=== PATIENT | female | born 1960 | race Caucasian/White ===

== ENCOUNTER 2016-07-21 05:27 | Emergency (ER) | payer OTHER ==
[2016-07-21 05:43] VITALS: TEMP 97.7; BMI 24.4
[2016-07-21] MEDS ORDERED: METOCLOPRAMIDE HCL INJECTION 10 MG/2 ML VIAL IVPB ONE (06:16)
[2016-07-21] MEDS ORDERED: morphine CARPU-JECT 4 MG/1 ML DISP.SYRIN IVPUSH ONE (06:16)
[2016-07-21] MEDS ORDERED: SODIUM CHLORIDE 1,000 ML IV STA (06:16)
[2016-07-21] MEDS ORDERED: PANTOPRAZOLE SODIUM 40 MG in SODIUM CHLORIDE 100 ML IVPB ONE (06:16)
--- NOTE | 2016-07-21 06:39 | PDOC ---
[id number] ABD PAIN Time Seen by Provider: 07/21/16 05:44 History Source: Patient Exam Limitations: No Limitations - History of Present Illness Travel History: No Initial Comments: 07/21/16 06:27 56yo Female patient presents to ED c/o abdominal bloating and pain after eating. Patient states she has a history of abd surgery with partial bowel removal due to recurrent diverticulitis and constipation per patient. Patient current symptoms began 1 week ago with associated nausea. Last BM: 2 days ago. GI Surgeon: "Milan Hagan" Timing/Duration: reports: getting worse Quality: reports: moderate Abdominal Pain Onset Location: reports: RUQ, epigastric Pain Radiation: reports: no radiation Activities at Onset: reports: no specific activity Treatment Prior to Arrive: worse with: analgesics, antacids, cold pack, heat, laxative, enema, other Aggravating Factors: improves with: Eating Alleviating Factors: worse with: None, Belching, Shallow Breathing, Defecation, Eating, Holding Breath, Passing Gas, Change in Position, Rest, Voiding, Vomiting Past History - Travel Traveled outside of the country in the last 30 days: No Close contact w/someone who was outside of country & ill: No - Past Medical History Allergies/Adverse Reactions: Allergies Allergy/AdvReac Type Severity Reaction Status Date / Time No Known Allergies Allergy Verified 07/21/16 05:39 Home Medications: Ambulatory Orders Ranitidine [Zantac -] 150 mg PO BID 04/20/16 Vitamin B Complex 1 each PO WEEKLY 04/20/16 Ondansetron HCl [Zofran] 4 mg PO TID PRN #12 tablet 07/21/16 Pantoprazole Sodium [Protonix] 40 mg PO DAILY #30 tablet. 07/21/16 Anemia: No Asthma: No Cancer: No Cardiac Disorders: No CVA: No COPD: (ADMITTED FOR PNEUMONIA-09/03/2011) CHF: No Dementia: No Diabetes: No Dialysis: No GI Disorders: Yes (ABDOMINAL PAIN,COLONIC POLYP) Disorders: No HTN: No Hypercholesterolemia: No HIV: No Kidney Stones: Yes Liver Disease: No Seizures: No Thyroid Disease: No - Surgical History Abdominal Surgery: Yes (SMALL BOWEL RESECTION) Appendectomy: No Cardiac Surgery: No Cholecystectomy: No Lung Surgery: No Neurologic Surgery: No Orthopedic Surgery: No - Immunization History Td Vaccination: Yes TDAP Vaccination: Yes Immunization Up to Date: Yes - Psycho/Social/Smoking Cessation Hx Anxiety: No Suicidal Ideation: No Smoking Status: Yes Smoking History: Current every day smoker Years of Tobacco Use: 35 Have you smoked in the past 12 months: Yes Number of Cigarettes Smoked Daily: 4 If you are a former smoker, when did you quit?: 08/24/2011 Cigars Per Day: 5 Information on smoking cessation initiated: Yes 'Breaking Loose' booklet given: 07/21/16 Hx Alcohol Use: Yes (OCCASIONALLY) Drug/Substance Use Hx: No Substance Use Type: None Hx Substance Use Treatment: No Abd/GI Specific PMHX - Complaint Specific PMHX Colitis: No Diverticulitis: No Gall Bladder Disease: No GERD: No Hepatitis: No Irritable Bowel Synd (IBS): No Pancreatitis: No GI Ulcer Disease: No Review of Systems - Review of Systems Able to Perform ROS?: Yes Is the patient limited Occitan proficient: No Constitutional: No: Chills, Fever, Malaise Respiratory: No: Cough, Shortness of Breath, Stridor, Wheezing Cardiac (ROS): No: Chest Pain, Lightheadedness, Palpitations, Syncope ABD/GI: Yes: Constipated, Nausea, Other (Abdominal Pain). No: Diarrhea, Poor Appetite, Poor Fluid Intake, Rectal Bleeding, Vomiting : No: Dysuria, Flank Pain, Hematuria Musculoskeletal: No: Back Pain Integumentary: No: Bruising, Erythema, Rash Neurological: No: Headache, Numbness, Paresthesia, Seizure, Tremors, Weakness, Ataxia, Dizziness All Other Systems: Reviewed and Negative *Physical Exam - Vital Signs Last Vital Signs Temp Pulse Resp BP Pulse Ox 97.7 F 60 18 140/86 98 07/21/16 05:40 07/21/16 05:40 07/21/16 05:40 07/21/16 05:40 07/21/16 05:40 - Physical Exam General Appearance: Yes: Nourished, Appropriately Dressed, Apparent Distress, Moderate Distress. No: Mild Distress, Severe Distress Respiratory/Chest: positive: Lungs Clear, Normal Breath Sounds. negative: Respiratory Distress, Accessory Muscle Use, Labored Respiration, Rapid RR, Stridor, Wheezing Cardiovascular: positive: Regular Rhythm, Regular Rate. negative: Edema, JVD, Murmur Gastrointestinal/Abdominal: positive: Tender (Epigastric and RUQ tendernss), Soft, Increased Bowel Sounds, Distended, Guarding, Rebound, Tenderness Musculoskeletal: positive: Normal Inspection. negative: CVA Tenderness Extremity: positive: Normal Capillary Refill, Normal Inspection, Normal Range of Motion Integumentary: positive: Normal Color, Dry, Warm Neurologic: positive: hard candy batch mixer II-XII NML intact, Fully Oriented, Alert, Normal Mood/ Affect, Normal Response, Motor Strength 09/25 ED Treatment Course - LABORATORY CBC & Chemistry Diagram: 07/21/16 07:15 07/21/16 07:15 - RADIOLOGY Radiology Studies Ordered: Category Date Time Status ABDOMEN & PELVIS CT WITH CONTR [CT] Stat CT Scan 07/21/16 06:16 Ordered *DC/Admit/Observation/Transfer Diagnosis at time of Disposition: Epigastric pain - Discharge Dispostion Disposition: HOME Condition at time of disposition: Improved Admit: No - Prescriptions Prescriptions: Pantoprazole Sodium [Protonix] 40 mg PO DAILY #30 tablet. Ondansetron HCl [Zofran] 4 mg PO TID PRN #12 tablet PRN Reason: Nausea And/Or Vomiting - Referrals Referrals: Steven Gaines DO [Staff Physician] - Madhuri Pike [Primary Care Provider] - - Patient Instructions Printed Discharge Instructions: DI for Epigastric Pain Additional Instructions: Take Zofran and Protonix as prescribed and follow-up with referral computerized table cutter. Please eat soft bland food for the next 48 hours and advance as tolerated. Return to ED if symptoms worsen.
[2016-07-21] MEDS ORDERED: PANTOPRAZOLE SODIUM 40 MG VIAL ONE (06:43)
[2016-07-21] MEDS ORDERED: morphine CARPU-JECT 4 MG/1 ML DISP.SYRIN ONE (06:43)
[2016-07-21] MEDS ORDERED: METOCLOPRAMIDE HCL INJECTION 10 MG/2 ML VIAL ONE (06:44)
[2016-07-21 07:37] LABS: BASOPHIL 0.5 % (0-2.0); EOSINOPHIL 1.4 % (0-4.5); MCH 30.2 pg (25.7-33.7); MCHC 35.2 g/dl (32.0-36.0); MEAN CELL VOLUME 85.9 fl (80-96); MEAN PLT VOLUME 7.5 fl (7.5-11.1); PLATELET COUNT 184 K/MM3 (134-434); RDW 12.4 % (11.6-15.6); WHITE BLOOD COUNT 8.3 K/mm3 (4.0-10.0)
[2016-07-21 07:42] LABS: URINE APPEARANCE CLEAR; URINE BILIRUBIN NEGATIVE (NEGATIVE); URINE COLOR LTYELLOW; URINE GLUCOSE (UA) NEGATIVE (NEGATIVE); URINE KETONE NEGATIVE (NEGATIVE); URINE LEUK ESTERASE NEGATIVE (NEGATIVE); URINE NITRITE NEGATIVE (NEGATIVE); URINE PROTEIN NEGATIVE (NEGATIVE); URINE UROBILINOGEN NEGATIVE E.U./dl (0.2-1.0)
[2016-07-21 08:04] LABS: ALBUMIN 3.8 g/dl (3.4-5.0); BILIRUBIN,DIRECT 0.1 mg/dL (0.0-0.2); BILIRUBIN,TOTAL 0.5 mg/dL (0.2-1.0); CALCIUM 9.4 mg/dL (8.5-10.1); CREATININE 0.8 mg/dL (0.55-1.02); TOT PROT 7.2 g/dl (6.4-8.2)
[2016-07-21 08:07] LABS: URINE BLOOD 1+ (NEGATIVE)
--- NOTE | 2016-07-21 08:13 | PDOC ---
*Physical Exam - Vital Signs Last Vital Signs Temp Pulse Resp BP Pulse Ox 97.7 F 72 18 126/74 99 07/21/16 05:40 07/21/16 07:30 07/21/16 07:30 07/21/16 07:30 07/21/16 07:30 - Physical Exam General Appearance: Yes: Nourished, Appropriately Dressed. No: Apparent Distress HEENT: positive: EOMI, VIN. negative: Pale Conjunctivae Neck: positive: Supple Respiratory/Chest: positive: Lungs Clear, Normal Breath Sounds. negative: Respiratory Distress, Accessory Muscle Use Cardiovascular: positive: Regular Rhythm, Regular Rate. negative: Murmur Gastrointestinal/Abdominal: positive: Tender (epigastric) ED Treatment Course - LABORATORY CBC & Chemistry Diagram: 07/21/16 07:15 07/21/16 07:15 - ADDITIONAL ORDERS Additional order review: Laboratory Results 07/21/16 07:36 Urine HCG, Qual Negative - Medications Given in the ED: ED Medications Discontinued Medications Generic Name Dose Route Start Last Admin Trade Name Freq PRN Reason Stop Dose Admin Pantoprazole Sodium 40 mg/ 100 mls @ 200 mls/hr 07/21/16 06:16 07/21/16 07:23 Sodium Chloride IVPB 07/21/16 06:45 200 mls/hr ONCE ONE Administration Sodium Chloride 1,000 mls @ 1,000 mls/hr 07/21/16 06:16 07/21/16 07:23 Normal Saline - IV 07/21/16 07:15 1,000 mls/hr ASDIR STA Administration Metoclopramide HCl 10 mg 07/21/16 06:16 07/21/16 07:23 Reglan Injection - IVPB 07/21/16 06:17 10 mg ONCE ONE Administration Morphine Sulfate 4 mg 07/21/16 06:16 07/21/16 07:23 Morphine Injection - IVPUSH 07/21/16 06:17 4 mg ONCE ONE Administration Medical Decision Making - Medical Decision Making 07/21/16 08:13 Patient received in sign out from MISSY Pastor. Patient awaiting CT secondary to abdominal pain. Patient had CBC and is otherwise comfortable presently Selected Entries 07/21/16 07:30 Pulse Rate [ 72 Apical] Respiratory 18 Rate Blood Pressure 126/74 [Left Arm] O2 Sat by Pulse 99 Oximetry (%) Laboratory Tests 02/07/21/16 07/21/16 07:15 07:19 07:36 WBC 8.3 Hgb 14.8 D Hct 42.1 D Plt Count 184 Neutrophils % 78.0 Urine Blood 1+ H Urine HCG, Qual Negative Chemistry amylase and lipase pending 07/21/16 11:55 Laboratory Tests 07/21/16 07/21/16 07/21/16 07:15 07:19 07:36 Sodium 142 Potassium 4.0 Chloride 106 Carbon Dioxide 26 Anion Gap 10 BUN 20 H D Creatinine 0.8 D Random Glucose 120 H D Calcium 9.4 AST 19 D ALT 36 D Lipase 235 Urine Ketones Negative Urine Blood 1+ H Urine Nitrite Negative Ur Leukocyte Esterase Negative Urine HCG, Qual Negative CT shows no thickening of the duodenum or proximal small bowel loops. Questionable mild fatty liver. Diverticulosis without evidence of diverticulitis. Patient states feeling better and will discharge home with recommendations to take Zofran and Protonix. Patient also recommended to follow- up with PCP *DC/Admit/Observation/Transfer Diagnosis at time of Disposition: Epigastric pain - Discharge Dispostion Disposition: HOME Condition at time of disposition: Improved - Prescriptions Prescriptions: Pantoprazole Sodium [Protonix] 40 mg PO DAILY #30 tablet. Ondansetron HCl [Zofran] 4 mg PO TID PRN #12 tablet PRN Reason: Nausea And/Or Vomiting - Referrals Referrals: Madhuri Pike [Primary Care Provider] - Steven Gaines DO [Staff Physician] - - Patient Instructions Printed Discharge Instructions: DI for Epigastric Pain Additional Instructions: Take Zofran and Protonix as prescribed and follow-up with referral pickler helper. Please eat soft bland food for the next 48 hours and advance as tolerated. Return to ED if symptoms worsen.
[2016-07-21 12:14] VITALS: BP 119/65; PULSE 75
== END 2016-07-21 12:14 | disposition home or self-care (01) ==
LOC: JER 05:27
PROC: 3E033GC Introduction of Other Therapeutic Substance into Peripheral Vein, Percutaneous Approach (ICD-10-PCS; principal; 2016-07-21)
PROC: 3E033NZ Introduction of Analgesics, Hypnotics, Sedatives into Peripheral Vein, Percutaneous Approach (ICD-10-PCS; 2016-07-21)
PROC: 3E033GC Introduction of Other Therapeutic Substance into Peripheral Vein, Percutaneous Approach (ICD-10-PCS; 2016-07-21)
DX: R10.13 Epigastric pain (principal)
CPT/HCPCS: 36415; 74177-TC; 80048; 80076; 81003; 81015; 82150; 83690; 84703; 85025; 96365; 96375; 99284-25; Q9967

== ENCOUNTER 2017-10-06 05:01 | Day surgery (SDC) | payer OTHER ==
--- NOTE | 2017-10-05 18:51 | PREOP ---
DATE OF ADMISSION: 10/06/2017 DATE OF SURGERY: 10/06/2017 ADMISSION DIAGNOSIS: Deviated nasal septum, inferior turbinate hypertrophy, chronic sphenoid sinusitis. HISTORY OF PRESENT ILLNESS: This 57-year-old female has had longstanding nasal obstruction. She has had complete bilateral obstruction, which occasionally fluctuates. There is additionally snoring. She has not had any previous nasal surgery. She also complains of headaches and sinus pain. Her exam demonstrates deviation of the septum and inferior turbinate hypertrophy. CT scan also demonstrates chronic bilateral sphenoid sinusitis. She has had neurology evaluation for suspected migraines. Her sense of smell has been somewhat reduced. She has also had allergy evaluation and has had maximum improvement with medical management and allergy management. She is now admitted for septoplasty, submucous resection of inferior turbinates, and sphenoid sinus surgery. PAST MEDICAL HISTORY: The patient does have a history of depression, diverticulitis, gastroesophageal reflux disease. No allergies to medications known. Present medications include azelastine, escitalopram oxalate, fluticasone nasal spray, gabapentin, loratadine, and meloxicam. She has been a smoker. Past surgical history includes stomach surgery for diverticula in the small intestine. She also had removal of a right breast cyst, and section. She underwent general anesthesia without reported problems. Bleeding history is negative. Family history is negative for bleeding or anesthesia problems. EXAMINATION: The patient is a well-developed female in no acute distress. Head is normal. Eyes are clear. Ears are unremarkable. The nose has significant deviation of the septum, inferior turbinate hypertrophy is present, chronic sphenoid sinusitis is present. DATA: CT scan of the paranasal sinuses performed at [facility] on August 21, 2017, demonstrates right and left chronic sphenoid sinusitis, and the remaining sinuses are unremarkable. The nasal septum is intact but significantly deviated. There is also significant inferior turbinate hypertrophy. IMPRESSION: Deviation of the nasal septum, inferior turbinate hypertrophy, and chronic sphenoid sinusitis. PLAN: Nasal septoplasty, submucous resection of inferior turbinates, and sphenoid sinus surgery, image guidance. INFORMED CONSENT: The patient understands the indications, alternatives, nature, risks and benefits of the proposed surgery, potential complications including but not limited to anesthesia, bleeding, infection, recurrence, numbness, hole in the septum, reduced sense of smell, eye injury or brain injury, were discussed in detail. She understands and accepts these risks and wished to proceed with surgery. Questions are answered fully. WISAM KIDD M.D. PAULO/[id number]
[2017-10-06 07:38] VITALS: BMI 24.3
[2017-10-06] MEDS ORDERED: LIDOCAINE 1%/EPI 1:100000 (20 ML MULTI DOSE VIAL) ONE (07:46)
--- NOTE | 2017-10-06 08:46 | HP ---
History & Physical Update - History History: No Change - Physical Physical: No Change - Assessment Assessment: No Change - Plan Plan: No Change
--- NOTE | 2017-10-06 08:48 | OP ---
Operative Note - Note: Operative Date: 10/06/17 ([id number]) Pre-Operative Diagnosis: nasal septal deviation, inferior turbinate hypertrophy with obstruction, chronic sphenoid sinusitis Operation: left sphenoid balloon sinuplasty, right endoscopic sphenoidotomy, nasal septoplasty, partial resection right middle turbinate,bilateral inferior turbinate therapeutic outfracture and mural cauterization Findings: polypoid obstruction right sphenoethmoid recess, obstructed left sphenoid ostium deviated septum to left, bony and cartilagenous right middle turbinate hypertrophy with polypoid degeneration bilateral inferior turbinate hypertrophy with obstruction, primarily soft tissue Implants: none Surgeon: Chavo Dorantes Anesthesiologist/MANAGER PLAN: Sonia Ceballos Anesthesia: General Specimens Removed: right sphenoid, right middle turbinate, nasal septum Estimated Blood Loss (mls): 5 Blood Volume Replaced (mls): 0 Operative Report Dictated: Yes
[2017-10-06] MEDS ORDERED: fentaNYL CITRATE 250 MCG/5 ML VIAL ONE (08:56)
[2017-10-06] MEDS ORDERED: MIDAZOLAM HCL 2 MG/2 ML SINGLE DOSE VIAL ONE (08:56)
[2017-10-06] MEDS ORDERED: PROPOFOL 20 ML ONE ×3 (08:56)
[2017-10-06] MEDS ORDERED: ALBUTEROL SO4 18 GM HFA INHALER IH ONE ×3 (09:15→11:03)
[2017-10-06] MEDS ORDERED: COCAINE HCL 4% TOPICAL SOLUTION 4 ML BOTTLE TP ONE ×2 (09:24→09:43)
[2017-10-06] MEDS ORDERED: ceFAZolin SODIUM 1 GM VIAL ONE (09:25)
[2017-10-06] MEDS ORDERED: ceFAZolin SODIUM 1 GM VIAL IVPB ONE (09:25)
[2017-10-06] MEDS ORDERED: ePHEDrine SULFATE 50 MG/1 ML AMPULE ONE (09:32)
[2017-10-06] MEDS ORDERED: DEXAMETHASONE SOD PHOSPHATE 4 MG/1 ML VIAL ONE (09:37)
[2017-10-06] MEDS ORDERED: LIDOCAINE 1%/EPI 1:100000 (50 ML MULTI DOSE VIAL) INF ONE ×2 (09:41)
[2017-10-06] MEDS ORDERED: BACITRACIN 15 GM TUBE TOPICAL OINTMENT ONE (09:59)
[2017-10-06] MEDS ORDERED: LACTATED RINGERS SOLUTION 1,000 ML IV SCH ×2 (11:00→12:30)
[2017-10-06] MEDS ORDERED: oxyCODONE HCL 5 MG TABLET PO PRN ×2 (11:00→12:23)
[2017-10-06] MEDS ORDERED: EPINEPHrine 1:10,000 (P-F SYR) 1 MG/10 ML DISP.SYRIN ONE (11:05)
[2017-10-06] MEDS ORDERED: LIDOCAINE HCL 2% 100 MG/5 ML DISP.SYRIN ONE (11:05)
--- NOTE | 2017-10-06 12:14 | OP ---
DATE OF OPERATION: 10/06/2017 PREOPERATIVE DIAGNOSIS: Nasal septal deviation, inferior turbinate hypertrophy, chronic sphenoid sinusitis. POSTOPERATIVE DIAGNOSIS: Nasal septal deviation, inferior turbinate hypertrophy, chronic sphenoid sinusitis with obstructive middle turbinate hypertrophy. PROCEDURE: Right endoscopic sphenoidotomy, left endoscopic balloon dilation of sphenoid sinus, nasal septoplasty, partial resection of right middle turbinate endoscopic, bilateral inferior turbinate therapeutic outfracture, and mural cauterization. SURGEON: Chavo Dorantes MD ANESTHESIOLOGIST: Dr. Sonia Ceballos ANESTHESIA: General via endotracheal tube. INDICATIONS: This 57-year-old female has had a longstanding nasal obstruction, which have has failed to improve with appropriate medical and allergic management. She has nasal septal deviation of the left as well as inferior turbinate hypertrophy. CT scan of the sinuses shows clear frontal ethmoid and maxillary sinuses; however, there is bilateral chronic sphenoid sinusitis. In addition, scan shows very hypertrophic middle turbinate. She is now participatory for treatment. FINDINGS: Nasal septal deviation to the left bony and cartilaginous. Right middle turbinate hypertrophy with polypoid degeneration and obstruction. Bilateral inferior turbinate hypertrophy with obstruction primary soft tissue. Polypoid obstruction of the right sphenoid ethmoid sinus and obstruction of the left sphenoid ostium. DESCRIPTION OF PROCEDURE: The patient was brought to the operating room and placed on the operating table in supine position. General anesthesia with endotracheal tube was induced to a satisfactory level. She was prepped and draped in the usual fashion for surgery. Lidocaine 1% with epinephrine 1:100,000 was infiltrated in the nasal septum. Cocaine 4% was placed topically in the nasal cavities on pledgets. The patient's CAT scan data was downloaded onto the [employer] Navigation System. The patient was properly registered. Image guidance was used intermittently throughout the case in order to identify anatomic location and guide surgical dissection. The pledgets were removed. Nasal endoscopy was performed with a 0-degree telescope. Deviation to the left side was seen. Inferior turbinate hypertrophy was present. The nasopharynx was clear. Significant middle turbinate hypertrophy was seen. The sphenoid ethmoid recesses were identified. It was narrowed on the left side, and on the right side there was significant polypoid tissue. Additional cocaine 4% was placed within the sphenoid ethmoid recesses. On the left side, the Entellus balloon dilation system was employed. The guide light was utilized, and the catheter light guide was advanced through the sphenoid ostium. The balloon was then advanced and then inflated for 10 seconds. The assembly was removed. Reinspection showed excellent dilation of the left sphenoid ostium. On the right side, significant polypoid tissue was identified at the sphenoid ethmoid recess. This was carefully removed with straight cup forceps. Sphenoid ostium was identified and was thereby opened. Attention was then turned toward the right middle turbinate. This partially obstructed the middle meatus. This was injected with lidocaine 1% with epinephrine 1:100,000. After adequate time for vasoconstriction, curved endoscopic scissors were then used to remove an anteroinferior portion of the middle turbinate where the polypoid degeneration was greatest. This was then sent to Pathology for routine studies. The remnant was cauterized with excellent hemostasis. This then did reveal the uncinate process and the ethmoid infundibulum, which were unremarkable. Attention was then turned toward the nasal septum. A right nasal septal incision was created with a 15 blade, and a right mucoperichondrial flap was elevated. The bony cartilaginous junction was identified, , and bilateral mucoperiosteal flaps were elevated. Obstructing bony septum along the perpendicular plate of the ethmoid was removed with the Garrett-Renato rongeur. An obstructing piece of cartilage inferiorly was excised with the Maiden cartilage knife. Bony deviation inferiorly was also removed with the rongeurs. After these maneuvers, the initial obstruction to the left had resolved. Cartilage and some bony fragment were placed in the middle layer as free graft. The incision was closed with interrupted 4-0 chromic sutures, and a todiaga-vfa-zyatckm quilting suture was also placed with 4-0 chromic. Finally, the inferior turbinates were examined. They were hypertrophic, but this was primarily soft tissue based upon CT scan and direct palpation. Therefore, the inferior turbinates were therapeutically outfractured with a Maiden elevator and long nasal specula. Once in a most recent lateralized position, mural cauterization was performed with a suction cautery in an island fashion. After these maneuvers, significant improvement in both nasal airways was obtained. Hemostasis was excellent. Nasopore dressing was then placed on the right side against the middle turbinate remnant. Folded Telfa gauze was placed in the inferior nasal cavities coated with bacitracin. The patient tolerated the procedure well. She was then awakened from general anesthesia and transferred to the PACU in stable condition. Estimated blood loss was 5 mL. She received crystalloid during the procedure. Specimens include right sphenoid, right middle turbinate, and nasal septal tissue, which were all sent to Pathology for routine studies. There were no complications. CHAVO DORANTES M.D. PAULO/[id number]
[2017-10-06] MEDS ORDERED: ALBUTEROL SO4 0.083% IH SOL 2.5 MG/3 ML VIAL.NEB. NEB ONE (12:23)
[2017-10-06] MEDS ORDERED: ONDANSETRON 4 MG/2 ML VIAL IVPUSH PRN (12:23)
[2017-10-06] MEDS ORDERED: ACETAMINOPHEN INJECTION 100 ML IVPB ONE (12:34)
[2017-10-06 13:41] VITALS: PULSE 67
[2017-10-06 16:39] VITALS: BP 129/78; TEMP 97.5
--- NOTE | 2017-10-08 17:53 | PATH ---
Surgical Pathology Report Patient Name: JOSE CRUZ WARREN [facility]. Rec. #: [id number] /Age/Gender: 1960 (Age: 57) / F Account: [id number] Location: [facility] SURGICAL Taken: 10/06/2017 Received: 10/06/2017 Reported: 10/08/2017 Physicians: Chavo Dorantes M.D. Specimen(s) Received A: SPHENOID SINUS B: MIDDLE TURBINATE TISSUE C: NASAL SEPTUM TISSUE Clinical History Deviated nasal septum, inferior turbinate hypertrophy with obstruction, atrophic sphenoid sinusitis Final Diagnosis A. SPHENOID SINUS, RIGHT, SPHENOID SINUS SURGERY: RESPIRATORY MUCOSA WITH CHRONIC SINUSITIS. B. MIDDLE TURBINATE, RIGHT, TURBINECTOMY: RESPIRATORY MUCOSA WITH CHRONIC SINUSITIS AND BONE. C. NASAL SEPTAL TISSUE, SEPTOPLASTY: CARTILAGE AND BONE WITHOUT SIGNIFICANT PATHOLOGIC FINDINGS. Electronically Signed Manjula Cagle M.D. Gross Description A. Received in formalin labeled "right sphenoid sinus," is a 0.5 cm greatest dimension jean soft tissue fragment. The specimen is submitted in toto in one cassette. B. Received in formalin labeled "right middle turbinate," is a 1.8 x 1.4 x 0.6 cm portion of bone with attached soft tissue. The specimen is bisected and entirely submitted in one cassette, following decalcification. C. Received in formalin labeled "nasal septal tissue," is a 2.0 x 1.0 x 0.2 cm aggregate of jean fragments of bone and cartilage. The specimen is entirely submitted in one cassette, following decalcification. 10/07/2017 [facility]2017
== END 2017-10-06 16:30 | disposition home or self-care (01) ==
LOC: JASU-SURG 05:01
PROVIDERS: ATTEND Otolaryngology
PROC: 09SL8ZZ Reposition Nasal Turbinate, Via Natural or Artificial Opening Endoscopic (ICD-10-PCS; 2017-10-06)
PROC: 8E09XBZ Computer Assisted Procedure of Head and Neck Region (ICD-10-PCS; principal; 2017-10-06 09:00)
PROC: 09BM8ZZ Excision of Nasal Septum, Via Natural or Artificial Opening Endoscopic (ICD-10-PCS; 2017-10-06 09:00)
DX: J34.2 Deviated nasal septum (principal); J34.3 Hypertrophy of nasal turbinates; J32.3 Chronic sphenoidal sinusitis
CPT/HCPCS: 94760; J0131

== ENCOUNTER 2021-02-19 09:01 | Emergency (ER) | payer OTHER ==
[2021-02-19 09:22] VITALS: BP 99/67; PULSE 91; TEMP 98.4; BMI 24.1
[2021-02-19] MEDS ORDERED: ALBUTEROL SO4 2.5/IPRATROPIUM 0.5 INH SOL 3 ML VIAL.NEB. NEB ONE ×2 (09:47→11:45)
[2021-02-19] MEDS ORDERED: ACETAMINOPHEN 500 MG TABLET (FP) PO ONE (09:47)
[2021-02-19] MEDS ORDERED: ACETAMINOPHEN 500 MG TABLET (FP) ONE (10:44)
[2021-02-19] MEDS ORDERED: ALBUTEROL SO4 0.083% IH SOL 2.5 MG/3 ML VIAL.NEB. NEB ONE (10:44)
== END 2021-02-19 15:11 | disposition home or self-care (01) ==
LOC: JER 09:01
PROC: 3E0F7GC Introduction of Other Therapeutic Substance into Respiratory Tract, Via Natural or Artificial Opening (ICD-10-PCS; principal; 2021-02-19)
PROC: 3E0F7GC Introduction of Other Therapeutic Substance into Respiratory Tract, Via Natural or Artificial Opening (ICD-10-PCS; 2021-02-19)
DX: J45.21 Mild intermittent asthma with (acute) exacerbation (principal); Z11.52 Encounter for screening for COVID-19
CPT/HCPCS: 71046-TC-FY; 94640; 99284-25; C9803; U0003; U0005

== ENCOUNTER 2022-03-11 09:53 | Day surgery (SDC) | payer OTHER ==
[2022-03-09 16:11] VITALS: BMI 26.2
[2022-03-11] MEDS ORDERED: LIDOCAINE HCL 2% 100 MG/5 ML DISP.SYRIN ONE (12:14)
[2022-03-11] MEDS ORDERED: MIDAZOLAM HCL 2 MG/2 ML SINGLE DOSE VIAL ONE (12:15)
[2022-03-11] MEDS ORDERED: PROPOFOL 60 ML ONE (12:15)
[2022-03-11] MEDS ORDERED: KETOROLAC TROMETHAMINE 30 MG/1 ML VIAL ONE (14:37)
[2022-03-11] MEDS ORDERED: DEXAMETHASONE SOD PHOSPHATE 4 MG/1 ML VIAL ONE (14:37)
[2022-03-11] MEDS ORDERED: ONDANSETRON 4 MG/2 ML VIAL ONE (14:37)
[2022-03-11] MEDS ORDERED: ceFAZolin SODIUM 1 GM VIAL ONE (14:40)
[2022-03-11] MEDS ORDERED: ONDANSETRON 4 MG/2 ML VIAL IVPUSH PRN (15:39)
[2022-03-11] MEDS ORDERED: PROMETHAZINE HCL 25 MG/1 ML VIAL IVPUSH PRN (15:39)
[2022-03-11] MEDS ORDERED: oxyCODONE HCL 5 MG TABLET PO PRN ×2 (15:39)
[2022-03-11] MEDS ORDERED: LACTATED RINGERS SOLUTION 1,000 ML IV SCH (15:45)
[2022-03-11 16:01] VITALS: TEMP 98
[2022-03-11 16:39] VITALS: RESP 16
[2022-03-11 16:50] VITALS: PULSE 56
[2022-03-11 17:20] VITALS: BP 118/70
== END 2022-03-11 17:05 | disposition home or self-care (01) ==
LOC: FASU 09:53
PROVIDERS: ATTEND Orthopaedic Surgery Hand Surgery
PROC: 0RGX07Z Fusion of Left Finger Phalangeal Joint with Autologous Tissue Substitute, Open Approach (ICD-10-PCS; principal; 2022-03-11 14:46)
DX: M19.042 Primary osteoarthritis, left hand (principal)
CPT/HCPCS: 73130-TC-LT-FY; 94760; C1713

== ENCOUNTER 2022-06-09 14:54 | Inpatient (IN) | payer OTHER ==
[2022-06-09 15:18] VITALS: BMI 26.0
[2022-06-09] MEDS ORDERED: ACETAMINOPHEN 500 MG TABLET (FP) PO ONE (15:52)
[2022-06-09] MEDS ORDERED: ONDANSETRON 4 MG/2 ML VIAL IVPUSH ONE (15:59)
[2022-06-09] MEDS ORDERED: ACETAMINOPHEN 500 MG TABLET (FP) ONE (16:01)
[2022-06-09] MEDS ORDERED: ALBUTEROL SO4 2.5/IPRATROPIUM 0.5 INH SOL 3 ML VIAL.NEB. NEB ONE ×2 (16:03→16:13)
[2022-06-09] MEDS ORDERED: ONDANSETRON 4 MG/2 ML VIAL ONE (16:13)
[2022-06-09 16:32] LABS: BASO % 0.1 % (0-2.0); HEMATOCRIT 39.5 % (32.4-45.2); HEMOGLOBIN 13.8 GM/dL (10.7-15.3); LYMPH % 3.9 % (8-40); MCH 30.3 pg (25.7-33.7); MCHC 34.9 g/dl (32.0-36.0); MEAN CELL VOLUME 86.6 fl (80-96); MEAN PLT VOLUME 7.7 fl (7.5-11.1); MONO % 4.5 % (3.8-10.2); NEUT % 91.5 % (42.8-82.8); PLATELET COUNT 181 10^3/uL (134-434); RBC 4.57 M/mm3 (3.60-5.2); RDW 12.6 % (11.6-15.6); WHITE BLOOD COUNT 19.9 K/mm3 (4.0-10.0)
[2022-06-09 16:57] LABS: ALBUMIN 3.5 g/dl (3.4-5.0); BLOOD UREA NITROGEN 20.6 mg/dL (7-18); CALCIUM 8.9 mg/dL (8.5-10.1)
[2022-06-09 17:01] LABS: CREATININE 0.9 mg/dL (0.55-1.3)
[2022-06-09 17:02] LABS: TOT PROT 6.6 g/dl (6.4-8.2)
[2022-06-09] MEDS ORDERED: AZITHROMYCIN IVPB 500 MG in DEXTROSE 5%-WATER - 250 ML IVPB ONE (17:11)
[2022-06-09] MEDS ORDERED: LACTATED RINGERS SOLUTION 1000 ML INFUS.BAG IV ONE (17:11)
[2022-06-09] MEDS ORDERED: PIPERACILLIN/TAZOB 4.5 GM 4.5 GM in DEXTROSE 5%-WATER 100 ML IVPB ONE (17:11)
[2022-06-09] MEDS ORDERED: VANCOMYCIN 1 GM in D5W (PRE-DOCKED) 1,000 MG/250 ML IVPB ONE (17:11)
[2022-06-09] MEDS ORDERED: PIPERACILLIN/TAZOB 4.5 GM 4.5 GM/100 ML BAG IVPB ONE (17:14)
[2022-06-09 17:21] LABS: EPI CELLS >36 /uL (0-25.1); HYALINE CASTS 3 /uL (0-3.1); URINE APPEARANCE CLOUDY; URINE BACTERIA 303 /uL (0-1359); URINE BILIRUBIN NEGATIVE (NEGATIVE); URINE COLOR YELLOW; URINE GLUCOSE (UA) NEGATIVE (NEGATIVE); URINE KETONE NEGATIVE (NEGATIVE); URINE LEUK ESTERASE 1+ (NEGATIVE); URINE NITRITE NEGATIVE (NEGATIVE); URINE PROTEIN NEGATIVE (NEGATIVE); URINE RBC 17 /uL (0-23.9); URINE WBC 45 /uL (0-25.8)
[2022-06-09] MEDS ORDERED: AZITHROMYCIN IVPB 500 MG/250 ML BAG IVPB ONE (17:40)
[2022-06-09] MEDS ORDERED: VANCOMYCIN/WATER FOR INJ (PEG) 1,000 MG/200 ML BAG IVPB ONE (18:10)
[2022-06-09] MEDS ORDERED: SODIUM CHLORIDE 1,000 ML IV STA (20:20)
[2022-06-09] MEDS ORDERED: ALBUTEROL SO4 2.5/IPRATROPIUM 0.5 INH SOL 3 ML VIAL.NEB. NEB PRN (21:32)
[2022-06-09 21:39] LABS: MAGNESIUM 1.7 mg/dL (1.8-2.4)
[2022-06-09 21:43] LABS: PHOSPHOROUS 2.3 mg/dL (2.5-4.9)
[2022-06-09] MEDS ORDERED: MAGNESIUM SULF 50% (8.12 MEQ/2 ML-1 GM VIAL) IVPB ONE (21:52)
[2022-06-09] MEDS ORDERED: NAPH,MB-DB/K PH,MBDB POWDER PACKET PO ONE (21:53)
[2022-06-09 21:57] LABS: LACTIC ACID 3.2 mmol/L (0.4-2.0)
[2022-06-09] MEDS ORDERED: EPINEPHrine 1:1,000 0.3 MG/0.3 ML SYR IM ONE (23:06)
[2022-06-09] MEDS ORDERED: FAMOTIDINE 20 MG/50 ML IVPB 20 MG/50 ML MG IVPB ONE ×2 (23:06→23:56)
[2022-06-09] MEDS ORDERED: methylPREDNISolone NA SUCC 40 MG/1 ML VIAL ONE (23:10)
[2022-06-09] MEDS ORDERED: methylPREDNISolone NA SUCC 40 MG/1 ML VIAL IVPUSH ONE (23:56)
[2022-06-10] MEDS ORDERED: MAGNESIUM 1GM/D5W - 1 GM/100 ML IVPB IVPB ONE (00:38)
[2022-06-10] MEDS ORDERED: NAPH,MB-DB/K PH,MBDB POWDER PACKET ONE (00:38)
[2022-06-10] MEDS: SODIUM CHLORIDE 1,000 ML IV SCH (00:59)
[2022-06-10] MEDS ORDERED: PIPERACILLIN/TAZOB 4.5 GM 4.5 GM in DEXTROSE 5%-WATER 100 ML IVPB SCH (01:00)
[2022-06-10] MEDS: FAMOTIDINE 20 MG TABLET PO SCH ×3 (01:21→22:56)
[2022-06-10] MEDS ORDERED: PIPERACILLIN/TAZOB 4.5 GM 4.5 GM/100 ML BAG IVPB ONE ×2 (01:27→09:53)
[2022-06-10] MEDS: LINEZOLID 600 MG PREMIX BAG 600 MG/300 ML BAG IVPB SCH ×2 (01:30→13:04)
[2022-06-10] MEDS: PIPERACILLIN/TAZOB 4.5 GM 4.5 GM in DEXTROSE 5%-WATER 100 ML IVPB SCH ×2 (02:20→10:03)
[2022-06-10] MEDS ORDERED: ACETAMINOPHEN 325 MG TABLET (FP) PO PRN (03:06)
[2022-06-10] MEDS ORDERED: ACETAMINOPHEN 325 MG TABLET (FP) ONE (03:20)
[2022-06-10 07:33] LABS: HEMATOCRIT 36.8 % (32.4-45.2); HEMOGLOBIN 12.5 GM/dL (10.7-15.3); MCH 29.8 pg (25.7-33.7); MCHC 34.1 g/dl (32.0-36.0); MEAN CELL VOLUME 87.6 fl (80-96); MEAN PLT VOLUME 7.6 fl (7.5-11.1); PLATELET COUNT 161 10^3/uL (134-434); RDW 12.8 % (11.6-15.6); WHITE BLOOD COUNT 14.4 K/mm3 (4.0-10.0)
[2022-06-10 08:04] LABS: BLOOD UREA NITROGEN 15.1 mg/dL (7-18); CALCIUM 8.4 mg/dL (8.5-10.1)
[2022-06-10 08:05] LABS: ALBUMIN 3.1 g/dl (3.4-5.0); MAGNESIUM 2.3 mg/dL (1.8-2.4)
[2022-06-10 08:07] LABS: CREATININE 0.7 mg/dL (0.55-1.3); PHOSPHOROUS 2.3 mg/dL (2.5-4.9)
[2022-06-10 08:08] LABS: BILIRUBIN,TOTAL 0.8 mg/dL (0.2-1)
[2022-06-10 08:39] LABS: ANISOCYTOSIS 0; HELMET CELLS 0; HOWELL-JOLLY BODIES 0; MACROCYTOSIS 0; OVALOCYTE 0; ROULEAU 0; SICKELED CELLS 0; TARGET CELLS 0; TEAR DROP CELLS 0; TOXIC GRANULATION 0
[2022-06-10] MEDS ORDERED: FAMOTIDINE 20 MG TABLET ONE (09:52)
[2022-06-10] MEDS ORDERED: methylPREDNISolone NA SUCC 40 MG/1 ML VIAL ONE (09:53)
[2022-06-10] MEDS ORDERED: ENOXAPARIN NA (PORCINE) 40 MG/0.4 ML DISP.SYRIN SQ ONE (09:53)
[2022-06-10] MEDS ORDERED: methylPREDNISolone NA SUCC 40 MG/1 ML VIAL IVPUSH SCH (10:00)
[2022-06-10 10:01] VITALS: RESP 18
[2022-06-10] MEDS: ENOXAPARIN NA (PORCINE) 40 MG/0.4 ML DISP.SYRIN SQ SCH (10:05)
[2022-06-10] MEDS ORDERED: ALBUTEROL SO4 0.083% IH SOL 2.5 MG/3 ML VIAL.NEB. NEB PRN (14:11)
[2022-06-10] MEDS: methylPREDNISolone NA SUCC 40 MG/1 ML VIAL IVPUSH SCH ×2 (14:46→22:56)
[2022-06-10] MEDS: ALBUTEROL SO4 2.5/IPRATROPIUM 0.5 INH SOL 3 ML VIAL.NEB. NEB SCH ×2 (15:45→21:18)
[2022-06-10] MEDS: CEFTRIAXONE 2 GM in DEXTROSE 5%-WATER 100 ML IVPB SCH (16:49)
[2022-06-10] MEDS: AZITHROMYCIN 250 MG TABLET PO SCH (16:49)
[2022-06-10] MEDS ORDERED: VANCOMYCIN 1 GM in D5W (PRE-DOCKED) 1,000 MG/250 ML IVPB SCH (20:30)
[2022-06-10] MEDS ORDERED: VANCOMYCIN 1 GM/200 ML PREMIX BAG (RESTRICTED TO ID ONLY) IVPB SCH (20:30)
[2022-06-10] MEDS ORDERED: LINEZOLID 600 MG TABLET (RESTRICTED TO ID) PO SCH (20:30)
[2022-06-10] MEDS ORDERED: BUDESONIDE/FORMETEROL FUMARATE 160/4.5 mcg INHALER IH SCH (22:00)
[2022-06-11] MEDS: methylPREDNISolone NA SUCC 40 MG/1 ML VIAL IVPUSH SCH ×3 (06:15→22:25)
[2022-06-11] MEDS: SODIUM CHLORIDE 1,000 ML IV SCH ×4 (06:17→22:22)
[2022-06-11] MEDS: ALBUTEROL SO4 2.5/IPRATROPIUM 0.5 INH SOL 3 ML VIAL.NEB. NEB SCH (09:23)
[2022-06-11] MEDS: FAMOTIDINE 20 MG TABLET PO SCH ×2 (09:52→22:24)
[2022-06-11] MEDS: BUDESONIDE/FORMETEROL FUMARATE 160/4.5 mcg INHALER IH SCH ×2 (09:53→22:25)
[2022-06-11] MEDS: CEFTRIAXONE 2 GM in DEXTROSE 5%-WATER 100 ML IVPB SCH (09:53)
[2022-06-11] MEDS: ENOXAPARIN NA (PORCINE) 40 MG/0.4 ML DISP.SYRIN SQ SCH (09:53)
[2022-06-11] MEDS ORDERED: IPRATROPIUM BR 0.02% 0.5 MG/2.5 ML VIAL.NEB. NEB PRN (10:19)
[2022-06-11] MEDS: DOCUSATE SODIUM 100 MG CAPSULE (FP) PO SCH ×2 (14:49→22:25)
[2022-06-11] MEDS: AZITHROMYCIN 250 MG TABLET PO SCH (17:38)
[2022-06-11] MEDS ORDERED: ZOLPIDEM TARTRATE 5 MG TABLET PO PRN (18:20)
[2022-06-11] MEDS: LEVALBUTEROL HCL 0.63 MG/3 ML VIAL.NEB. IH SCH ×2 (19:21→20:05)
[2022-06-12] MEDS: DOCUSATE SODIUM 100 MG CAPSULE (FP) PO SCH ×2 (06:57→13:36)
[2022-06-12] MEDS: methylPREDNISolone NA SUCC 40 MG/1 ML VIAL IVPUSH SCH ×2 (06:57→13:36)
[2022-06-12] MEDS: LEVALBUTEROL HCL 0.63 MG/3 ML VIAL.NEB. IH SCH ×2 (07:55→14:23)
[2022-06-12] MEDS: CEFTRIAXONE 2 GM in DEXTROSE 5%-WATER 100 ML IVPB SCH (09:33)
[2022-06-12] MEDS: ENOXAPARIN NA (PORCINE) 40 MG/0.4 ML DISP.SYRIN SQ SCH (09:38)
[2022-06-12] MEDS: FAMOTIDINE 20 MG TABLET PO SCH (09:39)
[2022-06-12] MEDS: BUDESONIDE/FORMETEROL FUMARATE 160/4.5 mcg INHALER IH SCH (09:39)
[2022-06-12 14:29] VITALS: BP 152/75; PULSE 49; TEMP 98
== END 2022-06-12 17:07 | disposition home or self-care (01) | DRG 139 ==
LOC: JER 14:54 → JERBED 20:06 → J8W 06-10 12:32
PROVIDERS: ADMIT Internal Medicine; ATTEND Family Medicine
DX: J18.9 Pneumonia, unspecified organism (principal); K21.9 Gastro-esophageal reflux disease without esophagitis; K29.60 Other gastritis without bleeding; E78.5 Hyperlipidemia, unspecified; F17.210 Nicotine dependence, cigarettes, uncomplicated; J45.901 Unspecified asthma with (acute) exacerbation; N39.0 Urinary tract infection, site not specified; E87.20 Acidosis, unspecified; F41.9 Anxiety disorder, unspecified
CPT/HCPCS: 0241U-QW; 36415; 71046-TC-FY; 80053; 81003; 83605; 83735; 84100; 84132; 85025; 87040; 87081; 87086; 87899; 93005; 93010; 94640; 99285-25

== ENCOUNTER 2023-09-27 09:56 | Emergency (ER) | payer OTHER ==
[2023-09-27 10:04] VITALS: TEMP 98.4; BMI 26.4
[2023-09-27] MEDS ORDERED: ACETAMINOPHEN INJECTION 100 ML IVPB ONE (11:17)
[2023-09-27] MEDS ORDERED: KETOROLAC TROMETHAMINE 15 MG/ML VIAL ONE (11:17)
[2023-09-27] MEDS ORDERED: ONDANSETRON 4 MG/2 ML VIAL ONE ×2 (11:18→11:39)
[2023-09-27 11:27] LABS: BASO % 0.3 % (0-2.0); EOS % 0.7 % (0-4.5); HEMATOCRIT 42.2 % (32.4-45.2); HEMOGLOBIN 14.5 GM/dL (10.7-15.3); LYMPH % 8.2 % (8-40); MCH 30.2 pg (25.7-33.7); MCHC 34.3 g/dl (32.0-36.0); MEAN CELL VOLUME 87.9 fl (80-96); MEAN PLT VOLUME 7.9 fl (7.5-11.1); MONO % 6.9 % (3.8-10.2); NEUT % 83.9 % (42.8-82.8); PLATELET COUNT 156 10^3/uL (134-434); RDW 13.1 % (11.6-15.6); WHITE BLOOD COUNT 8.6 K/mm3 (4.0-10.0)
[2023-09-27 11:35] LABS: INR 1.16 (0.83-1.09)
[2023-09-27 11:37] LABS: ACTIVATED PTT 33.6 SECONDS (25.2-36.5)
[2023-09-27] MEDS: KETOROLAC TROMETHAMINE 15 MG/ML VIAL IVPUSH ONE (11:38)
[2023-09-27] MEDS: SODIUM CHLORIDE 0.9% 500 ML INFUS.BAG IV ONE (11:38)
[2023-09-27] MEDS: ACETAMINOPHEN 1000 MG/100 ML BAG IVPB ONE (11:38)
[2023-09-27 11:45] LABS: POTASSIUM 4.2 mmol/L (3.5-5.1)
[2023-09-27 11:47] LABS: CALCIUM 9.1 mg/dL (8.5-10.1)
[2023-09-27 11:48] LABS: ALBUMIN 3.4 g/dl (3.4-5.0); BLOOD UREA NITROGEN 12.8 mg/dL (7-18)
[2023-09-27 11:51] LABS: CREATININE 0.6 mg/dL (0.55-1.3)
[2023-09-27 11:52] LABS: BILIRUBIN,TOTAL 0.9 mg/dL (0.2-1); TOT PROT 6.6 g/dl (6.4-8.2)
[2023-09-27] MEDS: ONDANSETRON 4 MG/2 ML VIAL IVPB ONE (11:55)
[2023-09-27 13:07] LABS: EPI CELLS 8 /uL (0-25.1); HYALINE CASTS 0 /uL (0-3.1); URINE APPEARANCE CLEAR; URINE BACTERIA 177 /uL (0-1359); URINE BILIRUBIN NEGATIVE (NEGATIVE); URINE COLOR YELLOW; URINE GLUCOSE (UA) NEGATIVE (NEGATIVE); URINE KETONE NEGATIVE (NEGATIVE); URINE LEUK ESTERASE TRACE (NEGATIVE); URINE NITRITE NEGATIVE (NEGATIVE); URINE PROTEIN NEGATIVE (NEGATIVE); URINE RBC 16 /uL (0-23.9); URINE UROBILINOGEN 0.2 mg/dL (0.2-1.0); URINE WBC 11 /uL (0-25.8)
[2023-09-27 15:37] VITALS: BP 116/66; PULSE 66; RESP 18
== END 2023-09-27 15:40 | disposition home or self-care (01) ==
LOC: JER 09:56
PROC: 3E033NZ Introduction of Analgesics, Hypnotics, Sedatives into Peripheral Vein, Percutaneous Approach (ICD-10-PCS; principal; 2023-09-27)
PROC: 3E0333Z Introduction of Anti-inflammatory into Peripheral Vein, Percutaneous Approach (ICD-10-PCS; 2023-09-27)
PROC: 3E033GC Introduction of Other Therapeutic Substance into Peripheral Vein, Percutaneous Approach (ICD-10-PCS; 2023-09-27)
DX: R19.7 Diarrhea, unspecified (principal); R10.32 Left lower quadrant pain; K52.9 Noninfective gastroenteritis and colitis, unspecified; Z20.822 Contact with and (suspected) exposure to COVID-19
CPT/HCPCS: 0241U-QW; 36415; 74177-TC; 80053; 81003; 83605; 83690; 85025; 85610; 85730; 86850; 86900; 86901; 93005; 93010; 99285-25; J0131

== ENCOUNTER 2023-10-22 17:12 | Inpatient (IN) | payer OTHER ==
[2023-10-22] MEDS ORDERED: MAG HYDROX/AL HYDROX/SIMETH 30 ML UNIT-DOSE CUP ONE (17:56)
[2023-10-22] MEDS ORDERED: ACETAMINOPHEN INJECTION 100 ML IVPB ONE (17:56)
[2023-10-22] MEDS ORDERED: FAMOTIDINE 20 MG/50 ML IVPB 20 MG/50 ML MG IVPB ONE (17:57)
[2023-10-22] MEDS ORDERED: ONDANSETRON 4 MG/2 ML VIAL ONE (17:57)
[2023-10-22] MEDS: FAMOTIDINE 20 MG/50 ML IVPB 20 MG/50 ML MG IVPB ONE (18:30)
[2023-10-22] MEDS: MAG HYDROX/AL HYDROX/SIMETH 30 ML UNIT-DOSE CUP PO ONE (18:30)
[2023-10-22] MEDS: ONDANSETRON 4 MG/2 ML VIAL IVPUSH ONE (18:30)
[2023-10-22] MEDS: ACETAMINOPHEN 1000 MG/100 ML BAG IVPB ONE (18:30)
[2023-10-22] MEDS: LACTATED RINGERS SOLUTION 1000 ML INFUS.BAG IV ONE (18:30)
[2023-10-22 18:38] LABS: BASO % 0.3 % (0-2.0); EOS % 0.4 % (0-4.5); HEMATOCRIT 42.6 % (32.4-45.2); LYMPH % 8.5 % (8-40); MCH 30.8 pg (25.7-33.7); MCHC 35.1 g/dl (32.0-36.0); MEAN CELL VOLUME 87.7 fl (80-96); MEAN PLT VOLUME 7.6 fl (7.5-11.1); MONO % 5.3 % (3.8-10.2); NEUT % 85.5 % (42.8-82.8); PLATELET COUNT 173 10^3/uL (134-434); RBC 4.85 M/mm3 (3.60-5.2)
[2023-10-22 18:40] LABS: EPI CELLS >36 /uL (0-25.1); HYALINE CASTS 2 /uL (0-3.1); URINE APPEARANCE CLOUDY; URINE BACTERIA 841 /uL (0-1359); URINE BILIRUBIN NEGATIVE (NEGATIVE); URINE COLOR YELLOW; URINE GLUCOSE (UA) NEGATIVE (NEGATIVE); URINE KETONE NEGATIVE (NEGATIVE); URINE LEUK ESTERASE 1+ (NEGATIVE); URINE NITRITE NEGATIVE (NEGATIVE); URINE PROTEIN 2+ (NEGATIVE); URINE RBC 131 /uL (0-23.9); URINE WBC 59 /uL (0-25.8)
[2023-10-22 18:45] LABS: INR 1.1 (0.83-1.09); PROTHROMBIN TIME (PATIENT) 12.6 SEC (9.7-13.0)
[2023-10-22 19:02] LABS: CALCIUM 9.1 mg/dL (8.5-10.1)
[2023-10-22 19:03] LABS: ALBUMIN 3.7 g/dl (3.4-5.0)
[2023-10-22 19:06] LABS: CREATININE 0.7 mg/dL (0.55-1.3)
[2023-10-22 19:07] LABS: TOT PROT 6.9 g/dl (6.4-8.2)
[2023-10-22] MEDS ORDERED: morphine SULFATE 4 MG/ML VIAL ONE ×2 (19:14→22:38)
[2023-10-22] MEDS: morphine CARPU-JECT 4 MG/1 ML DISP.SYRIN IVPUSH ONE ×2 (19:28→22:50)
[2023-10-22] MEDS ORDERED: LIDOCAINE HCL 2% JELLY 11 ML TP ONE (20:59)
[2023-10-22] MEDS: LIDOCAINE HCL 2% JELLY (5 ML/TUBE) TP ONE (22:21)
[2023-10-23] MEDS: DEXTROSE 5%-0.45% SALINE 1,000 ML IV SCH (01:06)
[2023-10-23] MEDS: ACETAMINOPHEN 1000 MG/100 ML BAG IVPB PRN (01:06)
[2023-10-23] MEDS: ONDANSETRON 4 MG/2 ML VIAL IVPUSH PRN (06:17)
[2023-10-23] MEDS: CEFTRIAXONE 1 GM in DEXTROSE 5%-WATER - 50 ML IVPB ONE (08:19)
[2023-10-23 09:04] LABS: BASO % 0.3 % (0-2.0); EOS % 1.2 % (0-4.5); HEMOGLOBIN 14.3 GM/dL (10.7-15.3); LYMPH % 11.3 % (8-40); MCH 30.6 pg (25.7-33.7); MCHC 34.8 g/dl (32.0-36.0); MEAN CELL VOLUME 87.8 fl (80-96); MEAN PLT VOLUME 7.7 fl (7.5-11.1); MONO % 6.4 % (3.8-10.2); NEUT % 80.8 % (42.8-82.8); PLATELET COUNT 155 10^3/uL (134-434); RBC 4.67 M/mm3 (3.60-5.2); RDW 12.7 % (11.6-15.6); WHITE BLOOD COUNT 6.7 K/mm3 (4.0-10.0)
[2023-10-23 09:18] LABS: POTASSIUM 3.7 mmol/L (3.5-5.1)
[2023-10-23 09:23] LABS: CALCIUM 8.7 mg/dL (8.5-10.1)
[2023-10-23 09:24] LABS: BLOOD UREA NITROGEN 16.6 mg/dL (7-18)
[2023-10-23 09:28] LABS: CREATININE 0.7 mg/dL (0.55-1.3)
[2023-10-23] MEDS: morphine SULFATE 4 MG/ML VIAL IVPUSH PRN (12:50)
[2023-10-23] MEDS: PANTOPRAZOLE SODIUM 40 MG VIAL IVPUSH SCH (12:53)
[2023-10-24] MEDS: ACETAMINOPHEN 1000 MG/100 ML BAG IVPB PRN (02:22)
[2023-10-24 04:01] VITALS: RESP 18
[2023-10-24] MEDS: CEFTRIAXONE 1 GM in DEXTROSE 5%-WATER - 50 ML IVPB SCH (09:06)
[2023-10-24] MEDS: KETOROLAC TROMETHAMINE 30 MG/1 ML VIAL IVPUSH PRN (09:06)
[2023-10-24 09:35] LABS: HEMOGLOBIN 14.5 GM/dL (10.7-15.3); MCH 30.8 pg (25.7-33.7); MCHC 35.3 g/dl (32.0-36.0); MEAN CELL VOLUME 87.2 fl (80-96); PLATELET COUNT 158 10^3/uL (134-434); RDW 12.5 % (11.6-15.6); WHITE BLOOD COUNT 7.1 K/mm3 (4.0-10.0)
[2023-10-24 09:55] LABS: POTASSIUM 3.8 mmol/L (3.5-5.1)
[2023-10-24 09:56] LABS: CALCIUM 8.4 mg/dL (8.5-10.1)
[2023-10-24 09:57] LABS: ALBUMIN 3.2 g/dl (3.4-5.0); BLOOD UREA NITROGEN 10.4 mg/dL (7-18)
[2023-10-24 10:00] LABS: CREATININE 0.5 mg/dL (0.55-1.3)
[2023-10-24 10:02] LABS: TOT PROT 6.2 g/dl (6.4-8.2)
[2023-10-25 23:56] VITALS: BMI 26.4
[2023-10-26 10:21] LABS: HEMATOCRIT 39.4 % (32.4-45.2); HEMOGLOBIN 13.5 GM/dL (10.7-15.3); MCH 30.5 pg (25.7-33.7); MCHC 34.3 g/dl (32.0-36.0); MEAN CELL VOLUME 88.8 fl (80-96); MEAN PLT VOLUME 7.9 fl (7.5-11.1); PLATELET COUNT 161 10^3/uL (134-434); RBC 4.43 M/mm3 (3.60-5.2); RDW 12.6 % (11.6-15.6); WHITE BLOOD COUNT 5.9 K/mm3 (4.0-10.0)
[2023-10-26 10:40] LABS: POTASSIUM 3.6 mmol/L (3.5-5.1)
[2023-10-26 10:41] LABS: CALCIUM 8.9 mg/dL (8.5-10.1)
[2023-10-26 10:45] LABS: CREATININE 0.6 mg/dL (0.55-1.3)
[2023-10-28] MEDS: DOCUSATE SODIUM 100 MG CAPSULE (FP) PO SCH (13:02)
[2023-10-28 15:30] VITALS: BP 138/77; PULSE 55; TEMP 98.9
== END 2023-10-28 15:30 | disposition home or self-care (01) | DRG 247 ==
LOC: JER 17:12 → JERBED 21:15 → J5S 10-23 00:15 → J6S 10-23 14:28
PROVIDERS: ADMIT Internal Medicine; ATTEND Family Medicine
PROC: 0D9670Z Drainage of Stomach with Drainage Device, Via Natural or Artificial Opening (ICD-10-PCS; principal; 2023-10-22)
DX: K56.609 Unspecified intestinal obstruction, unspecified as to partial versus complete obstruction (principal); E43 Unspecified severe protein-calorie malnutrition; K21.9 Gastro-esophageal reflux disease without esophagitis; J45.909 Unspecified asthma, uncomplicated; K56.7 Ileus, unspecified
CPT/HCPCS: 0241U-QW; 36415; 71045-TC-FY; 74018-TC-FY; 74019-TC-FY; 74177-TC; 80048; 80053; 81003; 83605; 83690; 83735; 84484; 85025; 85027; 85610; 85730; 87086; 93005; 93010; 99285-25; J0131; Q9967

== ENCOUNTER 2024-04-03 04:59 | Day surgery (SDC) | payer OTHER ==
[2024-03-29 13:43] VITALS: BMI 26.2
[2024-04-03] MEDS ORDERED: PROPOFOL 20 ML ONE (09:49)
[2024-04-03] MEDS ORDERED: MIDAZOLAM HCL 2 MG/2 ML SINGLE DOSE VIAL ONE (09:49)
[2024-04-03] MEDS ORDERED: LIDOCAINE HCL/PF 2% SDV 5ML VIAL ONE (09:49)
[2024-04-03] MEDS ORDERED: ONDANSETRON 4 MG/2 ML VIAL ONE ×2 (10:13→10:32)
[2024-04-03] MEDS ORDERED: DEXAMETHASONE SOD PHOSPHATE 4 MG/1 ML VIAL ONE (10:13)
[2024-04-03] MEDS ORDERED: oxyCODONE HCL 5 MG TABLET PO PRN (10:57)
[2024-04-03] MEDS ORDERED: ONDANSETRON 4 MG/2 ML VIAL IVPUSH PRN (10:57)
[2024-04-03] MEDS ORDERED: ACETAMINOPHEN 325 MG TABLET (FP) PO PRN (11:03)
[2024-04-03] MEDS ORDERED: IBUPROFEN 400 MG TABLET (FP) PO PRN (11:03)
[2024-04-03] MEDS: ACETAMINOPHEN 1000 MG/100 ML BAG IVPB ONE (11:04)
[2024-04-03] MEDS: ACETAMINOPHEN INJECTION 100 ML ONE (11:04)
[2024-04-03] MEDS: IBUPROFEN 600 MG TABLET (FP) PO ONE (12:53)
[2024-04-03 13:23] VITALS: RESP 16
[2024-04-03 16:33] VITALS: BP 118/78; PULSE 63; TEMP 97.5
== END 2024-04-03 16:00 | disposition home or self-care (01) ==
LOC: JASU-SURG 04:59
PROVIDERS: ATTEND Obstetrics & Gynecology
PROC: 0UDB8ZZ Extraction of Endometrium, Via Natural or Artificial Opening Endoscopic (ICD-10-PCS; principal; 2024-04-03 10:00)
PROC: 0DNW4ZZ Release Peritoneum, Percutaneous Endoscopic Approach (ICD-10-PCS; 2024-04-03 10:00)
DX: D25.0 Submucous leiomyoma of uterus (principal); N73.6 Female pelvic peritoneal adhesions (postinfective)
CPT/HCPCS: 88305-TC; 94760; J0131